=== PATIENT | male | born 1980 | race Caucasian/White ===

== ENCOUNTER 2016-10-06 21:04 | Emergency (ER) | payer MEDICAID | END 2016-10-06 23:24 | disposition home or self-care (01) | LOC: ER 21:04 | DX: T40.1X1A Poisoning by heroin, accidental (unintentional), initial encounter (principal); Y92.009 Unspecified place in unspecified non-institutional (private) residence as the place of occurrence of the external cause; F17.290 Nicotine dependence, other tobacco product, uncomplicated | CPT/HCPCS: 71010; 93005 ==